=== PATIENT | female | born 1985 | race Caucasian/White ===

== ENCOUNTER 2016-10-08 00:28 | Emergency (ER) | payer MEDICAID ==
[~2016-10-08] VITALS: Ht 162.6 cm; Wt 91.0 kg
[2016-10-08 00:35] VITALS: BP 139/83
== END 2016-10-08 03:53 | disposition left against medical advice (07) ==
LOC: ER 00:28
DX: Z53.21 Procedure and treatment not carried out due to patient leaving prior to being seen by health care provider (principal)

== ENCOUNTER 2017-04-24 18:45 | Observation (INO) | payer MEDICAID ==
[~2017-04-24] VITALS: Ht 162.6 cm; Wt 99.8 kg
[2017-04-24] MEDS ORDERED: PNV1TABL76 PO (19:21)
[2017-04-24] MEDS ORDERED: TERBUTALINE SULFATE 1MG/ML VIAL SUBCUT NR (19:58)
== END 2017-04-24 20:45 | disposition home or self-care (01) ==
LOC: L&D 18:45
PROVIDERS: ADMIT Obstetrics & Gynecology; ATTEND Obstetrics & Gynecology
DX: O62.9 Abnormality of forces of labor, unspecified (principal); O26.893 Other specified pregnancy related conditions, third trimester; R10.30 Lower abdominal pain, unspecified; Z3A.36 36 weeks gestation of pregnancy
CPT/HCPCS: 96372; 99281; G0378; J3105

== ENCOUNTER 2019-09-24 16:48 | Emergency (ER) | payer MEDICAID ==
[~2019-09-24] VITALS: Ht 165.1 cm; Wt 65.0 kg
[~2019-09-24 16:48] MED LIST: PNV1TABL76 PO
[2019-09-24] MEDS ORDERED: BACITRACIN ZINC OINT UDPKT TOP ONE (17:30)
[2019-09-24 18:11] VITALS: BP 132/89
[2019-09-24 20:12] LABS: HEPATITIS B SURFACE AB < 3.1 mIU/mL
[2019-09-24 20:22] LABS: HEPATITIS B SURFACE ANTIGEN NEGATIVE
[2019-09-26 05:13] LABS: HIV SCREEN 4G Non Reactive (Non Reactive)
== END 2019-09-24 18:37 | disposition home or self-care (01) ==
LOC: ER 16:48
DX: S61.231A Puncture wound without foreign body of left index finger without damage to nail, initial encounter (principal); W26.8XXA Contact with other sharp object(s), not elsewhere classified, initial encounter; Y93.F9 Activity, other caregiving; Y92.89 Other specified places as the place of occurrence of the external cause; Y99.0 Civilian activity done for income or pay; R03.0 Elevated blood-pressure reading, without diagnosis of hypertension
CPT/HCPCS: 36415; 87389; 99283